=== PATIENT | male | born 1975 | race Asian ===

== ENCOUNTER 2020-05-25 07:20 | Outpatient (CLI) | payer OTHER ==
--- NOTE | 2020-05-25 09:34 | MRI Report ---
PROCEDURE: Knee LT W/O INDICATIONS: PAIN,LOCKING,INSTABILITY TECHNIQUE: Noncontrast sagittal PD fast spin echo and T2 fast spin echo with fat saturation, sagittal 3-D gradie nt sequence with fat saturation; coronal T1 spin echo and PD fast spin echo with fat saturation, and axial PD fast spin echo with fat saturation through the knee. COMPARISON: None. FINDINGS: Image quality: Excellent. Menisci: Linear oblique high T2 signal intensity traverses the posterior horn medial meniscus, demon strating inferior articular surface extension. Amorphous high signal intensity within the anterior ho rn lateral meniscus is present, demonstrating superior articular surface extension. The meniscal root ligaments appear intact. Cruciate ligaments: The anterior and posterior cruciate ligaments appear intact. Medial structures: The medial collateral ligament appears intact. Visualized portions of the pes an serinus tendons appear normal. No abnormal bursal fluid. Lateral structures: The lateral collateral ligament, long and short heads of the biceps femoris tend on appear intact. The popliteus tendon appears normal; the popliteofibular ligament appears intact. The posterosuperior and anteroinferior popliteomeniscal fascicles appear intact. The arcuate and fa bellofibular ligaments appear intact, around the lateral inferior geniculate artery. Iliotibial band appears normal. Anterior structures: The quadriceps and patellar tendons appear intact. Mild lateral patellar sublux ation. No femoral trochlear dysplasia or ventral trochlear prominence. No edema in the infrapatellar fat pad. Bones and cartilage: No bone marrow contusions or fractures. Mild tricompartmental periarticular ost eophyte formation. Mild articular cartilage loss diffusely overlies the weightbearing aspects of the medial and lateral compartments. Articular cartilage fibrillation overlies the lateral patellar facet . 5 mm region of high-grade articular cartilage loss overlies the medial femoral trochlea inferiorly. Joint space: There is a small knee joint effusion and a small synovial protrusion along the popliteu s. No [place]?s cyst. Normal appearing synovial plicae are incidentally noted. IMPRESSION: 1. Tricompartmental osteoarthritis with associated articular cartilage loss. 2. Medial and lateral meniscal tearing. 3. Knee joint effusion and ganglion cyst along the popliteus. Reviewed by: Robin Osborn MD on 05/25/2020 9:33 AM PDT Approved by: Robin Osborn MD on 05/25/2020 9:33 AM PDT Station ID: [id number]
== END 2020-05-25 07:21 | disposition home or self-care (01) ==
LOC: DI 07:20
PROVIDERS: ATTEND Family Medicine
DX: S83.282A Other tear of lateral meniscus, current injury, left knee, initial encounter (principal); S83.242A Other tear of medial meniscus, current injury, left knee, initial encounter; M25.462 Effusion, left knee; M67.462 Ganglion, left knee; M94.262 Chondromalacia, left knee; M17.12 Unilateral primary osteoarthritis, left knee